=== PATIENT | female | born 1980 | race Caucasian/White ===

== ENCOUNTER 2022-05-23 17:56 | Outpatient (CLI) | payer BC, SELFPAY ==
[2022-05-23 19:27] LABS: Influenza Type A Negative (Negative); Influenza Type B Negative (Negative)
== END 2022-05-23 17:57 | disposition home or self-care (01) ==
LOC: LKVREF 17:56
PROVIDERS: PCP Physician Assistant Medical; Visit Provider Emergency Medicine
DX: U07.1 COVID-19 (principal); R50.9 Fever, unspecified; R53.83 Other fatigue
CPT/HCPCS: 87804

== ENCOUNTER 2023-11-18 11:28 | Outpatient (CLI) | payer BC, SELFPAY | END 2023-11-18 11:29 | disposition home or self-care (01) | LOC: NFLDREF 11-22 12:18 | PROVIDERS: PCP Physician Assistant Medical; Referring Provider Physician Assistant Medical; Visit Provider Nurse Practitioner Family | DX: N30.90 Cystitis, unspecified without hematuria (principal) | CPT/HCPCS: 87086 ==

== ENCOUNTER 2024-06-18 17:44 | Outpatient (CLI) | payer BC, SELFPAY | END 2024-06-18 17:45 | disposition home or self-care (01) | PROVIDERS: PCP Physician Assistant Medical; Visit Provider Nurse Practitioner Family | DX: N30.90 Cystitis, unspecified without hematuria (principal); E66.3 Overweight; R53.83 Other fatigue | CPT/HCPCS: 82728; 83540; 83550; 87086 ==